=== PATIENT | male | born 1950 ===

== ENCOUNTER 2017-06-07 10:56 | Day surgery (SDC) | payer OTHER, BC ==
[2017-06-07 11:15] VITALS: BMI 25.0
[2017-06-07] MEDS ORDERED: Lactated Ringer's 1,000 ML IV ONE (11:55)
[2017-06-07] MEDS ORDERED: Iohexol 300 10 ML ONE (14:00)
[2017-06-07] MEDS ORDERED: methylPREDNISolone Depo 80 mg/ml Inj ONE (14:00)
[2017-06-07] MEDS ORDERED: MethylPREDNISolone Depo 40 mg/ml Inj ONE (14:00)
[2017-06-07] MEDS ORDERED: Lidocaine 1% Inj (20ml) ONE (14:01)
[2017-06-07] MEDS ORDERED: Bupivacaine HCl 0.5% PF (10 ml) Inj ONE (14:01)
[2017-06-07] MEDS ORDERED: Bupivacaine HCl 0.25% PF (10 ml) Inj ONE (14:01)
[2017-06-07] MEDS ORDERED: Propofol 10 mg/ml Inj (20 ML) ONE (14:11)
[2017-06-07] MEDS ORDERED: Lidocaine 2% MPF (5 ml) Inj ONE (14:11)
[2017-06-07] MEDS ORDERED: Midazolam 2 MG/2 ML VIAL ONE (14:14)
[2017-06-07] MEDS ORDERED: Lidocaine 1% Inj (20ml) IJ ONE (14:23)
[2017-06-07] MEDS ORDERED: MethylPREDNISolone Depo 40 mg/ml Inj IM ONE (14:23)
[2017-06-07] MEDS ORDERED: Iohexol 300 10 ML IJ ONE ×2 (14:24)
[2017-06-07] MEDS ORDERED: HYDROmorphone 0.5 mg/0.5 ml ISec IVP PRN (14:44)
[2017-06-07] MEDS ORDERED: Oxycodone/Acetaminophen 5/325 mg Tab PO PRN (15:20)
[2017-06-07 17:40] VITALS: BP 132/76; PULSE 77; RESP 48; TEMP 98; O2SAT 96
--- NOTE | 2017-06-08 01:58 | OP ---
PROCEDURE DATE: 06/07/2017 PREOPERATIVE DIAGNOSIS: Lumbar radiculopathy. POSTOPERATIVE DIAGNOSIS: Lumbar radiculopathy. PROCEDURE: Right transforaminal epidural under fluoroscopic guidance at right L4-L5. COMPLICATIONS: None. ESTIMATED BLOOD LOSS: None. DESCRIPTION OF PROCEDURE: After informed consent was obtained, the patient was brought to the OR and placed on table in prone position. All pressure points were padded, sedation was administered by anesthesia. The lumbosacral spine was prepped with iodine x3 and draped in normal sterile fashion. X-ray was used in AP and oblique views to identify the L4-L5 vertebral bodies. A 2 mL of 1% lidocaine was used to create a skin wheal using a 25-gauge needle. A 22-gauge 3-1/2 inch spinal needle was guided with oblique x-ray view aiming towards the right L4 pedicle at the 6 o'clock position. This needle was entered into the transforaminal epidural space without paresthesia. After negative aspiration for heme or CSF, 2 mL of contrast was used to delineate the epidural space. After negative aspiration for heme or CSF, 2 mL of 0.5% lidocaine and Depo-Medrol was easily instilled. This procedure was repeated for the right L5 transforaminal epidural space. There was no paresthesia during the case. An 80 mg of Depo-Medrol was used for the case. The patient was brought to stage II recovery room with bilateral lower extremity motor and sensory intact. Adry Fernández MD MTDD
--- NOTE | 2017-06-08 12:06 | RAD ---
PROCEDURE: Lumbar epidural injection HISTORY: PAIN MANAGEMENT COMPARISON: None TECHNIQUE: Standard protocol for this study/examination. FINDINGS: Total fluoroscopic time (continuous mode) utilized during the procedure: 31.3 seconds. Total exam DLP: (mGy): 5.21 IMPRESSION: Less than 1 hr fluoroscopic time utilized during performance of the procedure.
== END 2017-06-07 17:30 | disposition home or self-care (01) ==
LOC: H.OPSURG 10:56
PROVIDERS: ATTEND Anesthesiology Pain Medicine
DX: M54.16 Radiculopathy, lumbar region (principal); J45.909 Unspecified asthma, uncomplicated; E11.9 Type 2 diabetes mellitus without complications; E78.5 Hyperlipidemia, unspecified
CPT/HCPCS: 64483; 82948; J1030; J2250; J2704; J3010; J7030; J7120; Q9967